=== PATIENT | female | born 1980 | race Two or more races ===

== ENCOUNTER 2017-04-04 21:55 | Emergency (ER) | payer MEDICAID ==
[~2017-04-04] VITALS: Ht 154.9 cm; Wt 59.0 kg
[2017-04-04 22:02] VITALS: BP 120/80
[2017-04-04 23:41] LABS: Urine Bilirubin Negative (Negative); Urine Blood TRACE /uL (Negative); Urine Color Yellow (Yellow); Urine Glucose Normal (Normal); Urine Ketone Negative (Negative); Urine Nitrite Negative (Negative); Urine RBC 3 /hpf (0 - 4); Urine Squamous Epithelial Cell FEW /hpf (<5); Urine Urobilinogen Normal (Negative)
[2017-04-05] MEDS ORDERED: IBUPROFEN 600 MG TAB PO ONE (00:15)
== END 2017-04-05 00:40 | disposition home or self-care (01) ==
LOC: ER 21:55
DX: N39.0 Urinary tract infection, site not specified (principal); G43.909 Migraine, unspecified, not intractable, without status migrainosus; R42 Dizziness and giddiness
CPT/HCPCS: 70450; 81001